=== PATIENT | male | born 1955 | race Caucasian/White ===

== ENCOUNTER 2023-07-07 13:45 | Outpatient (RCR) | payer MEDICARE, OTHER, SELFPAY | END 2023-07-07 23:59 | disposition home or self-care (01) | LOC: RPT 13:45 | PROVIDERS: ATTENDING PHYSICIAN Physician Assistant Medical | DX: I69.321 Dysphasia following cerebral infarction (principal); I69.322 Dysarthria following cerebral infarction; I69.318 Other symptoms and signs involving cognitive functions following cerebral infarction; I69.351 Hemiplegia and hemiparesis following cerebral infarction affecting right dominant side; I69.398 Other sequelae of cerebral infarction; R29.6 Repeated falls | CPT/HCPCS: 92507; 92523; 96125; 97110; 97112; 97116; 97163; 97530 ==

== ENCOUNTER 2023-08-07 13:55 | Outpatient (RCR) | payer MEDICARE, OTHER, SELFPAY | END 2023-08-07 23:59 | disposition home or self-care (01) | LOC: RPT 13:55 | PROVIDERS: ATTENDING PHYSICIAN Physician Assistant Medical | DX: I69.321 Dysphasia following cerebral infarction (principal); I69.322 Dysarthria following cerebral infarction; I69.318 Other symptoms and signs involving cognitive functions following cerebral infarction; I69.351 Hemiplegia and hemiparesis following cerebral infarction affecting right dominant side; R29.6 Repeated falls; Z73.6 Limitation of activities due to disability | CPT/HCPCS: 92507; 97110; 97112; 97129; 97130; 97530 ==

== ENCOUNTER 2023-09-04 13:46 | Outpatient (RCR) | payer MEDICARE, OTHER, SELFPAY | END 2023-09-04 23:59 | disposition home or self-care (01) | LOC: RPT 13:46 | PROVIDERS: ATTENDING PHYSICIAN Physician Assistant Medical | DX: I69.321 Dysphasia following cerebral infarction (principal); I69.322 Dysarthria following cerebral infarction; I69.318 Other symptoms and signs involving cognitive functions following cerebral infarction; Z73.6 Limitation of activities due to disability; R29.6 Repeated falls | CPT/HCPCS: 92507; 97110; 97112; 97116; 97129; 97130; 97530 ==

== ENCOUNTER 2023-10-06 13:51 | Outpatient (RCR) | payer MEDICARE, OTHER, SELFPAY | END 2023-10-06 23:59 | disposition home or self-care (01) | LOC: RPT 13:51 | PROVIDERS: ATTENDING PHYSICIAN Physician Assistant Medical | DX: I69.321 Dysphasia following cerebral infarction (principal); I69.322 Dysarthria following cerebral infarction; I69.318 Other symptoms and signs involving cognitive functions following cerebral infarction; Z73.6 Limitation of activities due to disability | CPT/HCPCS: 92507; 97110; 97112; 97116; 97129; 97130; 97530 ==

== ENCOUNTER 2023-10-20 14:14 | Outpatient (RCR) | payer MEDICARE, OTHER, SELFPAY | END 2023-10-21 07:15 | disposition home or self-care (01) | LOC: RPT 14:14 | PROVIDERS: ATTENDING PHYSICIAN Physician Assistant Medical | DX: I69.351 Hemiplegia and hemiparesis following cerebral infarction affecting right dominant side (principal); I69.321 Dysphasia following cerebral infarction; R29.6 Repeated falls; I69.322 Dysarthria following cerebral infarction; Z73.6 Limitation of activities due to disability | CPT/HCPCS: 92507; 97110; 97112; 97530 ==